=== PATIENT | male | born 1950 | race American Indian/Alaskan Native ===

== ENCOUNTER 2016-09-12 11:18 | Day surgery (SDC) | payer BC, MEDICARE ==
--- NOTE | 2016-09-11 17:41 | Short Stay Summary ---
Short Stay Documentation Date of service: 09/12/16 Narrative H&P: 66 yr old male SHAHIDA ROBERTS MD / PROSTATECTOMY DR. NANETTE FERRER 2006/ ASA 81 / HTN / NON SMOKER/ COFFEE AM & PM / OAB KIT / [id number]- didn't take / ctap ( ) bladder stone x 2--1cm / 1-09-26 CYSTO, DILATION 22F / ctap bladder stones NEEDS CYSTO, RPG, REMOVAL OF BLADDER STONES - History Past Medical History: cancer, hypertension Past Surgical History: Other (radical prostatectomy) - Allergies and Medications Current Medications: Allergies No Known Allergies Allergy (Verified 08/30/16 16:27) Home Medications Medication Instructions Recorded Confirmed Last Taken Type Aspirin [Adult Low Dose Aspirin EC] 81 mg PO DAILY 08/30/16 08/30/16 Unknown History Benzonatate [Tessalon Perles] 100 mg PO BID 08/30/16 08/30/16 Unknown History Fenofibrate [Lofibra] 160 mg PO QDAY 08/30/16 08/30/16 Unknown History Fluticasone [Flonase] 1 spray NS QDAY 08/30/16 08/30/16 Unknown History Losartan [Cozaar] 100 mg PO QDAY 08/30/16 08/30/16 Unknown History Metoprolol [Lopressor TAB] 50 mg PO DAILY 08/30/16 08/30/16 Unknown History Valacyclovir HCl [Valtrex] 1,000 mg PO BID 08/30/16 08/30/16 Unknown History amLODIPine [Norvasc] 5 mg PO DAILY 08/30/16 08/30/16 Unknown History - Physical exam General appearance: no acute distress, well-nourished Integumentary: no rash, no growths HEENT: Atraumatic, PERRLA, EOMI Lungs: Clear to auscultation Breasts: deferred Heart: Regular rate, No murmurs Gastrointestinal: normal Male Genitourinary: normal Rectal Exam: deferred Extremities: no ischemia Neurological: Normal gait
[~2016-09-12 11:18] MED LIST: ANCEF/STERILE WATER 2 GM/20 ML 2 GM/20 ML SYRINGE IV NR
[2016-09-12] MEDS ORDERED: NACL BACTERIOSTATIC INFILTRATI ONE (11:48)
[2016-09-12] MEDS ORDERED: DILAUDID IV PRN (11:55)
[2016-09-12] MEDS ORDERED: SUBLIMAZE IV PRN (11:55)
--- NOTE | 2016-09-12 11:57 | Anesthesia Day of Surgery ---
Anesthesia Day of Surgery - Day of Surgery Patient Examined: Yes Patient H&P Reviewed: Yes Patient is NPO: Yes
[2016-09-12] MEDS ORDERED: PEPCID PO NR (12:00)
[2016-09-12] MEDS ORDERED: NACL 0.9% 1000 ML 1,000 ML IV SCH ×2 (12:00)
[2016-09-12] MEDS ORDERED: VERSED IV NR (12:00)
[2016-09-12 12:19] LABS: Hematocrit 41.5 % (35.5-45.6); Hemoglobin 14.2 gm/dl (11.8-15.2)
[2016-09-12] MEDS ORDERED: DECADRON ONE (12:35)
[2016-09-12] MEDS ORDERED: ZOFRAN ONE (12:35)
[2016-09-12] MEDS ORDERED: XYLOCAINE MPF 2% ONE (12:35)
[2016-09-12] MEDS ORDERED: SUBLIMAZE ONE (12:36)
[2016-09-12] MEDS ORDERED: DIPRIVAN 10 MG/ML IV ONE ×2 (12:36→13:26)
[2016-09-12 12:48] LABS: Anion Gap 17 mmol/L; Blood Urea Nitrogen 14 mg/dL (9-20); Calcium 8.8 mg/dL (8.4-10.2); Carbon Dioxide 24 mmol/L (22-30); Chloride 104.3 mmol/L (98-107); Glucose 103 mg/dL (75-100); Potassium 3.8 mmol/L (3.6-5.0); Sodium 141 mmol/L (137-145)
--- NOTE | 2016-09-12 12:50 | Anesthesia Consultation ---
Anesthesia Consult and Med Hx Date of service: 09/12/16 - Airway Anesthetic Teeth Evaluation: Good ROM Head & Neck: Adequate Mental/Hyoid Distance: Adequate Mallampati Class: Class II Intubation Access Assessment: Probably Good - Pulmonary Exam CTA: Yes - Cardiac Exam Cardiac Exam: RRR - Pre-Operative Health Status ASA Pre-Surgery Classification: ASA3 Proposed Anesthetic Plan: General - Pulmonary Hx Smoking: Yes (STOPPED X 30 YS- ONE PACK PER WEEK) Hx Sleep Apnea: No (OIDN PRE SCREEN HIGH RISK.) - Cardiovascular System Hx Hypertension: Yes (X 10 YRS) - Other Systems Hx Substance Use: Yes (HEROIN- CLEAN SINCE 1969'S)
[2016-09-12] MEDS ORDERED: ePHEDrine SULFATE ONE (13:35)
[2016-09-12] MEDS ORDERED: WATER FOR IRRIG STERILE IR ONE ×2 (13:47)
--- NOTE | 2016-09-12 14:01 | Admit Criteria Form ---
Admission Criteria Documentation: AMBULATORY SURGERY EXCEPTION CRITERIA Ambulatory Surgery Exception Criteria ( Place 'X' for any and all applicable criteria): Surgery or procedure performed on ambulatory basis may require inpatient stay for[A] ANY ONE of the following(1)(2)(3)(4)(5)(6)(7)(8)(9): [X] I. A preoperative situation, condition, or finding that warrants inpatient stay as indicated by ANY ONE of the following: [] a) Inpatient care needed because of severity of a disease or condition rather than the surgery (eg, severe cardiac or respiratory disease, severe infection) (15) (16 ) (17) (18) [] b) Emergent procedure (eg, angioplasty for acute ischemia)(19) [] c) Complex surgical approach or situation as indicated by ANY ONE of the following(3): [] i) Open approach needed instead of usual endoscopic, transcatheter, or other less invasive procedure [] ii) Difficult approach because of previous operation [] iii) Airway monitoring required after open neck procedures(20)(21) [] iv) Large mass requiring unusually extensive dissection [] v) Additional complicating feature requiring inpatient care (eg, drain management)(22(23): [X] d) Major surgery in a pt with high anesthetic risk as indicated by ANY ONE of the following (2)(3)(5)(7)(8): [X] i) ASA risk class III or higher (severe systemic disease impairing function) [D] [] ii) Advanced age (eg, older than 85 years)(14)(24) [] iii) Symptomatic heart failure(25) [] iv) Symptomatic asthma or COPD(8)(21) [] v) Morbid obesity with hemodynamic or respiratory problems(20)( 21)(26)(27) [] vi) Obstructive sleep apnea(20)(21) [] vii) Former premature infants who are younger than 60 weeks [] viii) High risk for severe postoperative abnormalities (eg, severe postoperative hypocalcemia after parathyroidectomy for severe hyperparathyroidism)(27)( 28) [] ix) Unstable angina(25) [] e) Drug-related risk requiring inpatient stay as indicated by ANY ONE of the following(5)(10)(14)(32)(33) [] i) Procedure requires discontinuing drugs or other therapy (eg , antiarrhythmic medication, antiseizure medication), which necessitates inpatient observation or treatment.(18)(31) [] ii) Major surgery and high risk drug use as indicated by ANY ONE of the following: [] 1) Active abuse of cocaine or similar drug [] 2) Monoamine oxidase inhibitor use [] 3) Other drug identified as posing risk [] f) Inadequate outpatient care situation as indicated by ANY ONE of the following(5)(10)(14)(32)(33) [] i) Patient lives remote from medical facility and procedure has urgent complication potential, and temporary nearby residence cannot be arranged [] ii) Patient will have postprocedure incapacitation and inadequate assistance at home, or alternative level of care cannot be arranged. [] iii) Patient will have long general anesthesia or procedure side effect resolution time, and competent person to stay with patient on first postoperative night at home or alternative level of care cannot be arranged. []iv) Other inadequate outpatient situation that cannot be handled by other means [] II. A perioperative event, condition, or finding that warrants inpatient stay as indicated by ANY ONE of the following (1)(2)(3): [] a) Inadequate physiologic recovery: cardiovascular, respiratory, or hemodynamic status not normal or near preoperative baseline(18) [] b) Hemodynamic instability [] c) Patient not alert with near normal or baseline mental status [] d) Temperature not normal or as expected and not appropriate for outpatient treatment of condition [] e) Ambulatory or appropriate activity level status not yet achieved post procedure [E](34)(35)(36) [] f) Operative site not appropriate (eg, unexpected or excessive drainage or bleeding) [] g) Postoperative effects not resolved or adequately managed (eg, significant pain or vomiting not appropriate for outpatient or next level of care)(10)(12) [] h) Complicating features requiring inpatient care as indicated by ANY ONE of the following(37): [] i) Severe complications of procedure (eg, bowel injury, airway compromise, vascular injury,severe hemorrhage) [] ii) Extensive (eg, dissection far beyond usual scope of procedure ) or prolonged (eg, 120 minutes beyond usual) surgery needed requiring inpatient postoperative care [] iii) Conversion to an open or complex procedure that requires inpatient care (eg, open vs laparoscopic cholecystectomy, abdominal vs vaginal hysterectomy)(38) [] iv) Comorbid condition or test result identified during or post procedure that requires inpatient care (7) [] v) Malignant hyperthermia(30) [] vi) Other complicating feature requiring inpatient care(22)(23) Inpatient stay may be needed until ALL of the following are present (1)(2)(3)(4) (5)(6)(10)(14)(33)(40): []a) Physiologic recovery: cardiovascular, respiratory, and hemodynamic status normal or near preoperative baseline []b) Hemodynamic stability []c) Patient alert, with near normal or baseline mental status []d) Temperature appropriate: patient afebrile or temperature appropriate for outpt treatment of condition []e) Activity level appropriate: ambulatory or appropriate activity level post procedure []f) Operative site appropriate as indicated by ALL of the following: []i) Site dry or with expected drainage []ii) Any blood noted is as expected for procedure. []g) Postoperative effects resolved or managed as indicated by ALL of the following: []i) Pain management appropriate for outpatient (or next level of) care(10) []ii) Minimal nausea and vomiting: if present, successfully treated with oral medication(12) []iii) Headache, dizziness, or drowsiness (if present) are mild. []h) Voiding status acceptable as indicated by ANY ONE of the following: []i) Voiding spontaneously []ii) No voiding but instructions given for follow-up in 6 to 8 hours []iii) Urinary catheter in place, and instructions given for follow-up []i) Complicating features requiring inpatient care manageable at a lower level of care(37) []j) Comorbid conditions manageable at a lower level of care(37) The original [employer] content created by [employer] has been revised. The portions of the content which have been revised are identified through the use of italic text or in bold, and [facility] [employer] has neither reviewed nor approved the modified material. All other unmodified content is copyright [employer]. Please see references footnoted in the original [employer] edition 2016 Admission Criteria Met: Yes
--- NOTE | 2016-09-12 14:27 | Short Stay Summary ---
Short Stay Documentation Date of service: 09/12/16 - History H&P: obtained from office Past Medical History: cancer, hypertension Past Surgical History: Other (radical prostatectomy) - Allergies and Medications Current Medications: Allergies No Known Allergies Allergy (Verified 08/30/16 16:27) Home Medications Medication Instructions Recorded Confirmed Last Taken Type Aspirin [Adult Low Dose Aspirin EC] 81 mg PO DAILY 08/30/16 09/12/16 09/05/16 History Benzonatate [Tessalon Perles] 100 mg PO BID 08/30/16 09/12/16 3 Months Ago History Fenofibrate [Lofibra] 160 mg PO QDAY 08/30/16 08/30/16 09/12/16 08:00 History Fluticasone [Flonase] 1 spray NS QDAY 08/30/16 09/12/16 3 Months Ago History Losartan [Cozaar] 100 mg PO QDAY 08/30/16 08/30/16 09/12/16 08:00 History Metoprolol [Lopressor TAB] 50 mg PO DAILY 08/30/16 08/30/16 09/12/16 08:00 History Valacyclovir HCl [Valtrex] 1,000 mg PO BID 08/30/16 09/12/16 1 Month Ago History amLODIPine [Norvasc] 5 mg PO DAILY 08/30/16 08/30/16 09/12/16 08:00 History Active Medications Famotidine (Pepcid) 20 mg PO PREOP NR Stop: 09/12/16 23:59 Last Admin: 09/12/16 12:54 Dose: 20 mg Fentanyl (Sublimaze) 50 mcg IV Q5MIN PRN PRN Reason: Pain , Severe (7-10) Stop: 09/12/16 23:59 Hydromorphone HCl (Dilaudid) 0.5 mg IV Q10MIN PRN PRN Reason: Pain , Severe (7-10) Stop: 09/12/16 23:59 Cefazolin Sodium (Ancef/Sterile Water 2 Gm/20 Ml) 2 gm in 20 mls @ 80 mls/hr IV PREOP NR PRN Reason: Protocol Stop: 09/12/16 23:01 Sodium Chloride (Nacl 0.9% 1000 Ml) 1,000 mls @ 100 mls/hr IV DIRECT ISABELLE Last Admin: 09/12/16 13:00 Dose: 100 mls/hr Sodium Chloride (Nacl 0.9% 1000 Ml) 1,000 mls @ 100 mls/hr IV DIRECT ISABELLE Midazolam HCl (Versed) 2 mg IV PREOP NR Stop: 09/12/16 23:59 Last Admin: 09/12/16 13:03 Dose: 2 mg - Physical exam Breasts: deferred Heart: Regular rate, No murmurs Male Genitourinary: normal Extremities: no ischemia - Brief post op/procedure progress note Date of procedure: 09/12/16 Pre-op diagnosis: bladder stone Post-op diagnosis: same Procedure: cysto, urethral dilation, EHL bladder stone, excise eroded bladder suture Anesthesia: GETA Surgeon: KYUNG GUTIERREZ Estimated blood loss: none Condition: stable - Disposition Condition at discharge: Stable Disposition: DISCHARGED TO HOME OR SELFCARE Short Stay Discharge Plan Follow up with: PRIMARY CARE, [Primary Care Provider] - 7 Days
--- NOTE | 2016-09-12 14:40 | Post Anesthesia Evaluation ---
- Post Anesthesia Evaluation Patient Participated: Yes Airway Patent: Yes Stable Respiratory Function: Yes Nausea/Vomiting: No Temp > 96.8F: Yes Pain Manageable: Yes Adequeate Hydration: Yes Anesthesia Complications: No Block Receding Appropriately: Not Applicable Patient on Ventilator: No
[2016-09-12] MEDS ORDERED: NORCO 5/325 PO PRN (15:19)
--- NOTE | 2016-09-12 16:45 | Fluoroscopy Report ---
RETROGRADE PYELOGRAM: History: Bladder stone. There is adequate filling of the ureters and intrarenal collecting systems with no filling defects or anatomic abnormalities identified.
[2016-09-12 17:28] VITALS: BP 157/80
--- NOTE | 2016-09-12 18:43 | Operative Report ---
PREOPERATIVE DIAGNOSIS: Bladder stone. POSTOPERATIVE DIAGNOSES: 1. Bladder stone. 2. Retained stitch and bladder stone. PROCEDURE: Cystoscopy, urethral dilatation, bilateral retrograde pyelograms, excision of retained stitch, electrohydraulic lithotripsy, Pena catheter placement. SURGEON: Juan Black M.D. ANESTHESIA: General. ESTIMATED BLOOD LOSS: Minimal. FLUIDS: Crystalloid. COMPLICATIONS: None. INDICATIONS: This is a 66-year-old gentleman who has been managed by Dr. Brian Newman and he underwent radical prostatectomy in 2006. He has been under my care for the last 6 months, had some hematuria. CT of abdomen and pelvis revealed the bladder stone, 1 cm in largest diameter. Attempts at cystoscopy in the office, he had stricture. I dilated it to get into the bladder, saw the stones, but the stones were too large to remove. He presents now for endoscopic evaluation. DESCRIPTION OF PROCEDURE: The patient was taken to the operative suite, placed in a supine position. After adequate general anesthesia, he was placed in a dorsal lithotomy position, prepped and draped in a sterile fashion. Ureteroscopy was performed. 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 A 22-Gibraltarian scope could not advance, a 0.035 Glidewire followed by a 20-Gibraltarian Keller sound and then a 24-Gibraltarian. At that point, I was able to advance the 22-Gibraltarian scope. Bilateral retrograde pyelograms were obtained with an 8-Gibraltarian [place] catheter and 8 mL of contrast. No filling defects or obstruction. In the bladder, obvious stones as indicated and that was on a stitch that was observed on the right side of the trigone, pulled on the stitch cut it to where it was retracted and no longer in the bladder. The stone was too big and therefore, a 3-Gibraltarian EHL probe was used to fragment the stone. I was then able to remove it. The patient tolerated the procedure well. Over a wire, an 18-Gibraltarian kenaitze-tip catheter was advanced, 10 mL in the balloon of water. Rectal exam was benign. He was extubated and taken to recovery room. He will go home with his Pena catheter, Cipro and Smoot and follow up in the office. JOB# [id number] [facility]
== END 2016-09-12 17:00 | disposition home or self-care (01) ==
LOC: OR 11:18
PROVIDERS: ATTEND Urology
DX: N21.0 Calculus in bladder (principal); I10 Essential (primary) hypertension; F15.90 Other stimulant use, unspecified, uncomplicated; B19.20 Unspecified viral hepatitis C without hepatic coma; Z87.891 Personal history of nicotine dependence; Z85.46 Personal history of malignant neoplasm of prostate; Z79.899 Other long term (current) drug therapy
CPT/HCPCS: 36415; 52318; 74420; 80048; 85014; 85018; A4217; C1758; J0690; J1100; J1170; J2250; J2405; J2704; J3010; J7030; Q9967